=== PATIENT | female | born 1980 | race Caucasian/White ===

== ENCOUNTER 2022-06-04 14:30 | Outpatient (CLI) | payer OTHER, SELFPAY | END 2022-06-04 14:31 | disposition home or self-care (01) | LOC: NFLDREF 14:31 | PROVIDERS: Visit Provider Registered Nurse | DX: Z01.419 Encounter for gynecological examination (general) (routine) without abnormal findings (principal); Z11.3 Encounter for screening for infections with a predominantly sexual mode of transmission | CPT/HCPCS: 87491; 87591 ==

== ENCOUNTER 2022-11-18 09:41 | Outpatient (CLI) | payer OTHER, SELFPAY | END 2022-11-18 09:42 | disposition home or self-care (01) | LOC: NFLDREF 09:42 | PROVIDERS: Visit Provider Obstetrics & Gynecology | DX: N92.0 Excessive and frequent menstruation with regular cycle (principal) | CPT/HCPCS: 84443 ==

== ENCOUNTER 2022-12-12 07:28 | Day surgery (SDC) | payer OTHER, SELFPAY ==
[2022-12-12] VITALS (9 sets, daily range): BP systolic 99–116; BP diastolic 58–76; PULSE 64–94; RESP 16; TEMP 36.2–37; O2SAT 97–100; BMI 26.6
[2022-12-12] MEDS: SODIUM CHLORIDE 0.9 % (FLUSH) 10 ML SYRINGE IVF (08:00)
[2022-12-12] MEDS: LACTATED RINGERS 1000 ML 1,000 ML 100 ML IV (08:00)
--- NOTE | 2022-12-12 08:09 | SUR.PREOP ---
HOME COVID TEST NEGATIVE.
[2022-12-12 08:13] LABS: Ur HCG Qualitative* Negative (Negative)
--- NOTE | 2022-12-12 08:33 | P.GYNPRC_ITS ---
Procedure Note Date Seen: 12/12/22 Procedure Details: PREOPERATIVE DIAGNOSIS: Menorrhagia POSTOPERATIVE DIAGNOSIS: Menorrhagia PROCEDURE: Hysteroscopy, dilation and curettage, Magi endometrial ablation SURGEON: Sandy Rowell MD ANESTHESIA: Monitored anesthesia care, paracervical block IV FLUIDS: 700 cc crystalloid URINE OUTPUT: Approximately 15 mL EBL: Less than 5 mL SALINE DEFICIT: 160 mL FINDINGS: 1. Upon pelvic exam under anesthesia, the cervix and vagina were normal in appearance. Uterus was mobile and anteverted, of normal size and texture. There were no palpable adnexal masses. 2. Upon hysteroscopy, the endocervix was normal appearance. The endometrial cavity was also normal appearance, without any intracavitary lesions. 3. Uterine measurements as follows: Sounded depth 10 cm, cervical length 4 cm, cavity length 6 cm COMPLICATIONS: [] PROCEDURE IN DETAIL: Patient was taken to the operating room with IV running. She was positioned in dorsal lithotomy position with her legs fully supported in Yellofin stirrups. Monitored anesthesia care was administered. She was prepped and draped in the usual sterile fashion. Exam under anesthesia was performed for the above-noted findings. Speculum was inserted. Cervix visualized and grasped along the anterior lip wit h a single-tooth tenaculum. Paracervical block was performed for a total of approximately 10 mL of 1% lidocaine. Cervix was serially dilated to accommodate the TRUCLEAR hysteroscope. This was assembled with saline inflow and outflow in place. The line was flushed of bubbles. The hysteroscope was advanced through the cervix into the endometrial cavity for the above noted findings. The tissue morcellator was then inserted through the operating channel. Window lock was performed. Under direct visualization, the endometrial cavity was circumferentially curetted with the tissue morcellator. The hysteroscope and morcellator were then removed from the uterus. Tenaculum was removed from the anterior lip of cervix. Hemostasis was noted. Uterine and cervical measurements were then performed with uterine sound, with findings as noted above. Cervix was serially dilated to accommodate the Magi handheld device. The device was then powered on. The hand-held device was inserted through the cervix and the array was deployed. Appropriate uterine width was noted. The intracervical balloon was then inflated. The pedal was pushed to activate to the cavity integrity test, both of which were passed. The ablation cycle then ensued. Thereafter, the intracervical balloon was deflated, and the device was retracted from the uterus. Hysteroscope was reinserted, confirming ablation of the endometrium. Hysteroscope was removed. Tenaculum was removed from the anterior lip of cervix. Hemostasis was noted. Patient tolerated procedure well. She was taken to recovery area in stable c ondition.
--- NOTE | 2022-12-12 09:53 | W.ANESCHARGE ---
Anesthesia Charges Start Date/Time Anesthesia Start Date: 12/12/22 Anesthesia Start Time: 09:01 Stop Date/Time Anesthesia Stop Date: 12/12/22 Anesthesia Stop Time: 09:51 Summary Emergency: No
--- NOTE | 2022-12-12 09:56 | P.GYNPRC_ITS ---
Procedure Note Date Seen: 12/12/22
--- NOTE | 2022-12-12 09:56 | W.ANESCHARGE ---
Anesthesia Charges Start Date/Time Anesthesia Start Date: 12/12/22 Anesthesia Start Time: 09:01 Stop Date/Time Anesthesia Stop Date: 12/12/22 Anesthesia Stop Time: 09:51 Summary Emergency: No
--- NOTE | 2022-12-12 09:56 | W.PM.GYNPROC ---
Procedure Note Date Seen: 12/12/22
[2022-12-12] MEDS: HYDROCODONE/ACETAMIN 7.5-325 TABLET 1 TAB PO (11:47)
== END 2022-12-12 11:47 | disposition home or self-care (01) ==
PROVIDERS: Visit Provider Obstetrics & Gynecology
PROC: 0UF98ZZ Fragmentation in Uterus, Via Natural or Artificial Opening Endoscopic (ICD-10-PCS; CPT 58563; principal; 2022-12-12 08:45)
DX: N92.0 Excessive and frequent menstruation with regular cycle (principal); N84.0 Polyp of corpus uteri
CPT/HCPCS: 58563; 00952; 36415; 81025; 86850; 86900; 86901; 88305; A9270; J1885; J2250; J2704; J3010; J7120

== ENCOUNTER 2023-03-31 20:01 | Emergency (ER) | payer OTHER, SELFPAY ==
[2023-03-31] VITALS (9 sets, daily range): BP systolic 120–162; BP diastolic 68–95; PULSE 102–116; RESP 16–20; TEMP 36.9; O2SAT 18–100; BMI 25.6
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
[2023-03-31 20:34] LABS: Basophils Absolute Auto 0.05 K/uL (0.00-0.30); Basophils Percent Auto 0.6 % (0.0-3.0); Eosinophils Percent Auto 1.1 % (0.0-7.0); Hematocrit 40.5 % (33.0-51.0); Hemoglobin* 13.3 gm/dL (12.0-16.0); Immature Granulocytes Abs Auto 0.02 K/uL (0.00-0.30); Immature Granulocytes Pct Auto 0.2 %; Lymphocytes Absolute Auto 1.84 K/uL (0.90-2.90); Lymphocytes Percent Auto 20.3 % (20-44); Mean Corpuscular HGB Conc 33 gm/dL (32-36); Mean Corpuscular Hemoglobin 30 pg (26-34); Mean Corpuscular Volume 91 fL (80-100); Monocytes Percent Auto 6.5 % (0.0-11.0); Neutrophils Absolute Auto 6.45 K/uL (1.7-7.0); Neutrophils Percent Auto 71.3 % (42.0-72.0); Platelet Count* 256 K/uL (140-440); RDW Coefficient of Variation % 11.7 % (11.5-15.5); Red Blood Count 4.44 m/uL (4.00-5.20); White Blood Count* 9.05 K/uL (4.50-11.00)
[2023-03-31 20:36] LABS: Appearance Urine Clear (Clear); Bilirubin Urine Negative (Negative); Blood Urine Trace-intact (Negative); Color Urine Yellow (Yellow); Glucose Urine Negative (Negative); Ketones Urine Negative (Negative); Leukocyte Esterase Urine Negative (Negative); Nitrite Urine Negative (Negative); Protein Urine Negative (Negative); Specific Gravity Urine <= 1.005 (1.000-1.030); Urobilinogen Urine 0.2 (0.2-1.0); pH Urine 6.5 (5.0-8.5)
[2023-03-31 20:44] LABS: Slide Review Reflex No
[2023-03-31 20:48] LABS: Chloride* 104 mmol/L (96-114); Potassium* 3.8 mmol/L (3.6-5.1); Sodium* 137 mmol/L (135-149)
[2023-03-31 20:50] LABS: Bilirubin Total* 0.4 mg/dL (0.1-1.5); Carbon Dioxide* 24 mmol/L (20-32); Creatinine* 0.5 mg/dL (0.5-1.5); Est. Creatinine Clearance* 113.56; Estimated Glomerular Filt Rate 119 ml/min
[2023-03-31 20:51] LABS: Alanine Aminotransferase* 22 U/L (4-35); Alkaline Phosphatase* 42 U/L (40-150); Aspartate Amino Transferase* 27 U/L (12-35); Blood Urea Nitrogen* 14 mg/dL (5-24); Calcium* 8.8 mg/dL (8.4-10.6); Glucose* 124 mg/dL (60-115); Total Protein* 7.9 g/dL (6.0-8.3)
[2023-03-31 20:53] LABS: RBC Urine 0-2 (0-2); Squamous Epithelial Cell Urine Few (None-Few); WBC Urine 0-2 (0-5)
[2023-03-31] MEDS: 0.9 % SODIUM CHLORIDE 1000 ml 1,000 ML 6000 ML IV (21:34)
[2023-03-31] MEDS: MORPHINE 2 MG/ML inj IVP (21:34)
[2023-03-31] MEDS: LORazepam 2 MG/ML inj 0.5 MG IVP (21:35)
[2023-03-31] MEDS: ONDANSETRON 2 MG/ML inj 4 MG IVP (23:14)
[2023-03-31] MEDS: HYDROmorphone 0.5 mg/0.5 ml inj IVP (23:14)
[2023-03-31] MEDS: KETOROLAC 15 MG/ML inj IVP (23:14)
[2023-04-01] VITALS: BP 140/52; PULSE 106; RESP 18; O2SAT 100
[2023-04-01 01:05] VITALS: BP 120/64; PULSE 89; RESP 18; O2SAT 94
== END 2023-04-01 01:21 | disposition home or self-care (01) ==
PROVIDERS: Emergency Provider Family Medicine
DX: R07.89 Other chest pain (principal); R00.0 Tachycardia, unspecified; V43.62XA Car passenger injured in collision with other type car in traffic accident, initial encounter
CPT/HCPCS: 36415; 71260; 80048; 80076; 81001; 84484; 85025; 93005; 96361; 96374; 96375; 99285; 99291; J1170; J1885; J2060; J2270; J2405; J7030; Q9967

== ENCOUNTER 2023-08-26 13:54 | Outpatient (CLI) | payer OTHER, SELFPAY ==
--- NOTE | 2023-08-26 14:30 | MR_ITS ---
[facility] [address] [address] Phone:?[phone] Fax:?[phone] Referring Physician Information: Walter Martinez M.D. [address] [facility] [address] Phone:?[phone] Fax:?[phone] Patient:Dre Leiva D.O.B:?1980 Sex:?Female Phone:?[phone] [facility] MRN:?[id number] Exam Date:?08/26/2023 EXAM: MRI of the LEFT SHOULDER, without contrast CLINICAL HISTORY: Other shoulder lesion left shoulder. Suspect tear. COMPARISONS: None available. TECHNICAL: MRI sequences of the left shoulder: Axials: PD, T2 Coronals: PD, STIR, T2 Sagittals: PD, T2 SEDATION: None CONTRAST: None FINDINGS: Bones: No fracture or suspicious bone marrow signal abnormality. Coracoacromial arch: Acromion: No os acromiale. Type I-II acromion. Acromiohumeral space: The bony distance is unremarkable. Acromioclavicular joint: Mild to moderate degenerative changes with mild to moderate adjacent distal clavicular bone marrow edema Coracoclavicular ligament: The coracoclavicular ligament is intact. Rotator cuff muscles/tendons: Supraspinatus: Tiny 5 mm in AP dimension by 2 mm in transverse dimension concealed slitlike tear within the supraspinatus tendon insertional footprint contacts the cortical insertional surface and is superimposed upon mild to moderate supraspinatus tendinopathy. No muscular atrophy. Infraspinatus: The infraspinatus tendon and muscle are intact. Teres minor: The teres minor tendon and muscle are intact. Subscapularis: The subscapularis tendon and muscle are intact. Labrum and glenohumeral joint: There is type II SLAP tear from the 12 o'clock position through 10:30 o'clock position posterosuperiorly best seen on coronal series 4 images 13 through 15. Physiologic amount of joint fluid. No discrete chondral defect or subchondral bone marrow edema/cystic change is seen. No convincing evidence of capsular edema or thickening although evaluation is suboptimal because of lack of joint distention. Proximal biceps tendon, long head and short heads: The long and short heads of the proximal biceps tendon are intact. Bursae: Subacromial/subdeltoid: No convincing subacromial bursal thickening/bursitis. Subcoracoid: No convincing subcoracoid bursal thickening/bursitis. IMPRESSION: 1. A tiny 5 x 2 mm concealed slitlike tear within the supraspinatus tendon insertional footprint contacts the cortical insertional surface and is superimposed upon mild to moderate supraspinatus tendinopathy. 2. No articular or bursal surfacing rotator cuff tendon tear. No rotator cuff muscular atrophy. 3. Type II SLAP tear from the 12 o'clock position through 10:30 o'clock position posterosuperiorly. 4. Mild to moderate acromioclavicular joint osteoarthritis with mild to moderate adjacent distal clavicular bone marrow edema. Correlate with any point tenderness and clinical signs and symptoms. 5. Intact biceps tendon. RCB Electronically signed on 08/26/2023 7:00:00 PM by Mark Anthony Tan M.D.
== END 2023-08-26 13:55 | disposition home or self-care (01) ==
LOC: MRI 13:56
PROVIDERS: PCP Family Medicine; Visit Provider Family Medicine
DX: M75.82 Other shoulder lesions, left shoulder (principal); S43.432A Superior glenoid labrum lesion of left shoulder, initial encounter; M19.012 Primary osteoarthritis, left shoulder
CPT/HCPCS: 73221

== ENCOUNTER 2023-09-19 13:00 | Outpatient (RCR) | payer OTHER, SELFPAY | END 2023-10-15 11:57 | disposition home or self-care (01) | PROVIDERS: Visit Provider Family Medicine | DX: M75.82 Other shoulder lesions, left shoulder (principal); Z51.89 Encounter for other specified aftercare | CPT/HCPCS: 97110; 97140; 97162 ==

== ENCOUNTER 2024-02-02 08:49 | Outpatient (CLI) | payer OTHER, SELFPAY | END 2024-02-02 08:50 | disposition home or self-care (01) | LOC: NFLDREF 08:51 | PROVIDERS: PCP Family Medicine; Visit Provider Obstetrics & Gynecology | DX: Z13.220 Encounter for screening for lipoid disorders (principal) | CPT/HCPCS: 80061 ==

== ENCOUNTER 2024-02-23 10:24 | Outpatient (CLI) | payer OTHER, SELFPAY ==
--- NOTE | 2024-02-23 11:16 | W.ANESCHARGE ---
Anesthesia Charges Start Date/Time Anesthesia Start Date: 02/23/24 Anesthesia Start Time: 11:32 Stop Date/Time Anesthesia Stop Date: 02/23/24 Anesthesia Stop Time: 12:12
--- NOTE | 2024-02-23 12:14 | W.ANESCHARGE ---
Anesthesia Charges Start Date/Time Anesthesia Start Date: 02/23/24 Anesthesia Start Time: 11:32 Stop Date/Time Anesthesia Stop Date: 02/23/24 Anesthesia Stop Time: 12:12
== END 2024-02-23 10:25 | disposition home or self-care (01) ==
LOC: OP CLINIC 10:24
PROVIDERS: PCP Family Medicine; Visit Provider Surgery
DX: Z12.11 Encounter for screening for malignant neoplasm of colon (principal)
CPT/HCPCS: 00811; 00812; 45378; J2704

== ENCOUNTER 2024-04-21 12:46 | Outpatient (CLI) | payer OTHER, SELFPAY ==
--- NOTE | 2024-04-21 13:00 | MM_ITS ---
Patient: ANGELA ORELLANA Facility:?[facility] Patient ID:?[id number] Site Patient ID:?[id number] Site :?1980 Study:?XRay-Breast Bilateral 3D W/CAD-04/21/2024 1:28:59 PM Ordering Physician:Sandy Canales Final Report: BILATERAL SCREENING MAMMOGRAM WITH COMPUTER-AIDED DETECTION AND TOMOSYNTHESIS TECHNIQUE: CC and MLO views were obtained. These mammographic images have been obtained using full-field digital technique. These mammographic images were interpreted with the benefit of computer-aided detection. Breast Tomosynthesis was used in this interpretation. COMPARISON FILM: 05/25/21, 04/02/19. FINDINGS: The breasts are heterogeneously dense, which may obscure small masses. IMPRESSION: There is no radiographic evidence for malignancy. ASSESSMENT: BI-RADS Category 1: Negative RECOMMENDATION: Routine screening mammogram in 1 year. A lay language report of this examination will be provided to the patient. Walter Farnsworth M.D. Diagnostic Radiologist [email or web address] DSM/sp R& Transcribed: 3:57 p.m. SP/Dictated by: Walter Farnsworth MD @ 04/22/2024 1:16:00 PM Signed by:?Walter Farnsworth MD @04/22/2024 3:59:48 PM (Electronic Signature)
== END 2024-04-21 12:47 | disposition home or self-care (01) ==
LOC: MAMMO 12:48
PROVIDERS: PCP Family Medicine; Visit Provider Obstetrics & Gynecology
DX: Z12.31 Encounter for screening mammogram for malignant neoplasm of breast (principal); R92.2 Inconclusive mammogram
CPT/HCPCS: 77063; 77067

== ENCOUNTER 2025-04-11 14:04 | Outpatient (CLI) | payer OTHER, SELFPAY | END 2025-04-11 14:05 | disposition home or self-care (01) | PROVIDERS: PCP Family Medicine; Visit Provider Physician Assistant | DX: R23.2 Flushing (principal) | CPT/HCPCS: 83001; 84443 ==